=== PATIENT | female | born 2000 | race Caucasian/White ===

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

== ENCOUNTER 2020-07-31 19:32 | Emergency (ER) | payer OTHER ==
[2020-07-31 19:48] VITALS: BP 126/89; PULSE 100; RESP 20; TEMP 99.1
--- NOTE | 2020-07-31 20:11 | ED ---
Skin/Abscess/FB HPI - General Chief complaint: Skin/Abscess/Foreign Body Stated complaint: Rash Time Seen by Provider: 07/31/20 19:52 Source: patient Mode of arrival: ambulatory Limitations: no limitations - History of Present Illness Initial comments: 19-year-old female presents to emergency with chief complaint of a rash. She states her symptoms began approximately one week ago and it started in her forearms and has gradually moved to the trunk neck and her thighs. Patient reports the rash is very itchy but not painful. States the rash is somewhat worse at nighttime. She reports there is some itching in the webs of the fingers. She does report taking Benadryl with no significant improvement in the itching. Denies any night sweats or chills. States she lives with multiple members in the family in close quarters and no one else has the rash. - Related Data Previous Rx's Medication Instructions Recorded Permethrin 5% Cream [Elimite] 1 applic TOPICAL ONCE #1 cream..g. 07/31/20 Triamcinolone 0.1% Cream [Kenalog 1 applicatio TOPICAL BID #15 gram 07/31/20 0.1% Cream] hydrOXYzine HCL [Atarax] 25 mg PO TID PRN #15 tab 07/31/20 Allergies Allergy/AdvReac Type Severity Reaction Status Date / Time amoxicillin Allergy Unknown Verified 07/31/20 19:48 Review of Systems ROS Statement: Those systems with pertinent positive or pertinent negative responses have been documented in the HPI. ROS Other: All systems not noted in ROS Statement are negative. Past Medical History Past Medical History: No Reported History History of Any Multi-Drug Resistant Organisms: None Reported Past Surgical History: No Surgical Hx Reported Past Psychological History: No Psychological Hx Reported Smoking Status: Vaper Past Alcohol Use History: None Reported Past Drug Use History: Marijuana General Exam Limitations: no limitations General appearance: alert, in no apparent distress, obese Head exam: Present: atraumatic, normocephalic, normal inspection Eye exam: Present: normal appearance, PERRL, EOMI Pupils: Present: normal accommodation ENT exam: Present: normal exam, normal oropharynx, mucous membranes moist Neck exam: Present: normal inspection, full ROM. Absent: tenderness Respiratory exam: Present: normal lung sounds bilaterally. Absent: respiratory distress Cardiovascular Exam: Present: regular rate, normal rhythm, normal heart sounds Extremities exam: Present: normal inspection, full ROM, normal capillary refill Back exam: Present: normal inspection, full ROM Neurological exam: Present: alert, oriented X3, normal gait Psychiatric exam: Present: normal affect, normal mood Skin exam: Present: warm, dry, intact, normal color, rash (maculopapular rash on the bilateral upper extremities, trunk, neck and thighs. There is some lesions also noted in the webbing of her fingers.) Course Vital Signs 07/31/20 19:45 Temperature 99.1 F Pulse Rate 100 Respiratory 20 Rate Blood Pressure 126/89 O2 Sat by Pulse 99 Oximetry Medical Decision Making - Medical Decision Making 19-year-old female presents emergency Department with a chief complaint of a rash. Physical examination, this is a maculopapular rash throughout the whole body. Tears also lesions noted between the webs of the fingers. The rash appears to be worse at night. Patient will be started on permethrin and given specific instructions on how to use it. She was also given Atarax for itching and a steroid cream for the rash that appears to be worse in certain areas. Return parameters were thoroughly discussed the patient was understanding and agreeable. She has no point with the primary care Sunday. Case discussed with Dr. Black Disposition Clinical Impression: Scabies Disposition: HOME SELF-CARE Condition: Stable Instructions (If sedation given, give patient instructions): Scabies (ED) Prescriptions: hydrOXYzine HCL [Atarax] 25 mg PO TID PRN #15 tab PRN Reason: Itching Permethrin 5% Cream [Elimite] 1 applic TOPICAL ONCE #1 cream..g. Triamcinolone 0.1% Cream [Kenalog 0.1% Cream] 1 applicatio TOPICAL BID #15 gram Is patient prescribed a controlled substance at d/c from ED?: No Referrals: Solomon Merida MD [Primary Care Provider] - 1-2 days Time of Disposition: 20:46
== END 2020-07-31 20:59 | disposition home or self-care (01) ==
LOC: EC 19:32
DX: B86 Scabies (principal); F17.290 Nicotine dependence, other tobacco product, uncomplicated; Z88.0 Allergy status to penicillin
CPT/HCPCS: 99282

== ENCOUNTER → 2022-05-11 | Outpatient (CLI) | payer OTHER | END | disposition home or self-care (01) | LOC: LABWHC1 16:10 | PROVIDERS: ATTEND Obstetrics & Gynecology | DX: O02.1 Missed abortion (principal); Z3A.00 Weeks of gestation of pregnancy not specified | CPT/HCPCS: 36415; 84702 ==

== ENCOUNTER → 2022-05-11 | Outpatient (CLI) | payer OTHER ==
--- NOTE | 2022-05-12 07:58 | US ---
EXAMINATION TYPE: Transabdominal DATE OF EXAM: 05/11/2022 4:07 PM COMPARISON: NONE CLINICAL HISTORY: Z36.89 confirm gestational age/viability. confirm dates EXAM PERFORMED: Transvaginal (TV) and Transabdominal (TA) EXAM MEASUREMENTS: GESTATIONAL AGE / DATING Physician Established: Not yet established Dates by LMP: (11 weeks/3 days) EDC: 11/27/22 Dates by First Scan: No previous this is first scan Dates by Current Scan for: (9 weeks/2 days) EDC: 12/12/22 MATERNAL ANATOMY Uterus: 8.7 x 6.2 x 7.4cm Right Ovary: 3.7 x 3.4 x 2.5cm Left Ovary: 2.9 x 2.1 x 1.6cm Post CDS / Adnexa: wnl Presence of free fluid: no Presence of corpus luteal cyst: yes, complex area right ovary = 2.1 x 2.2 x 1.9cm GESTATION / SURVEY CRL: 2.5cm (9 weeks/2 days) Yolk Sac (normal less than 6mm): not seen Heart Rate: unable to obtain heart tones at this time IUP: Demise Date of LMP: 02/20/22 Beta HcG (if available): Not available at this time IMPRESSION: Findings consistent with demise.
== END | disposition home or self-care (01) ==
LOC: RADUSWWP 15:32
PROVIDERS: ATTEND Obstetrics & Gynecology
DX: Z36.89 Encounter for other specified antenatal screening (principal); Z3A.09 9 weeks gestation of pregnancy
CPT/HCPCS: 76801; 76817

== ENCOUNTER → 2022-05-16 | Outpatient (CLI) | payer OTHER ==
--- NOTE | 2022-05-16 16:20 | US ---
EXAMINATION TYPE: US pelvic complete DATE OF EXAM: 05/16/2022 COMPARISON: NONE CLINICAL HISTORY: 21-year-old female O03.4 INCOMPLETE SPONTANEOUS . Miscarriage retained prod ucts. TECHNIQUE: Transabdominal sonographic images of the pelvis were acquired. FINDINGS: EXAM MEASUREMENTS: Uterus: 12.6 x 4.9 x 6.1 cm Endometrial Stripe: 1.2 cm Right Ovary: 3.2 x 1.8 x 2.7 cm Left Ovary: 3.3 x 1.9 x 2.9 cm 1. Uterus: Roll Finisher notes: Anteverted and otherwise wnl; no retained products seen. 2. Endometrium: wnl 3. Right Ovary: wnl 4. Left Ovary: wnl 5. Bilateral Adnexa: wnl 6. Posterior cul-de-sac: wnl IMPRESSION: The endometrial stripe appears uniformly thickened and homogeneous measuring 1.2 cm. This should altagracia espond to the secretory phase of the menstrual cycle.
== END | disposition home or self-care (01) ==
LOC: RADUSWWP 10:20
PROVIDERS: ATTEND Obstetrics & Gynecology
DX: O03.4 Incomplete spontaneous abortion without complication (principal)
CPT/HCPCS: 76856

== ENCOUNTER 2022-07-13 16:55 | Emergency (ER) | payer OTHER ==
[2022-07-13] MEDS ORDERED: LIDOCAINE 1% INJ 10MG/ML (30 ML VIAL-PF) SQ ONE (17:39)
--- NOTE | 2022-07-13 19:10 | ED ---
General Adult HPI - General Chief complaint: Skin/Abscess/Foreign Body Stated complaint: groin pain - sent by urgent care Time Seen by Provider: 07/13/22 17:21 Source: patient, family, RN notes reviewed Mode of arrival: ambulatory Limitations: no limitations - History of Present Illness Initial comments: 21-year-old female with no significant past medical history presents to the emergency department with a chief complaint of gluteal abscess. She noticed the abscess started about a week ago. She denies any self incision and drainage. She was evaluated by [facility] who recommend she be evaluated in the ED. She denies fevers, headache, chest pain, palpitations, shortness of breath, abdominal pain, nausea, vomiting, diarrhea, pain with defecation. - Related Data Previous Rx's Medication Instructions Recorded Ketorolac [Toradol] 10 mg PO Q8HR #15 tab 07/13/22 Sulfamethox-Tmp 800-160Mg [Bactrim 1 each PO Q12HR #20 tab 07/13/22 Ds] Allergies Allergy/AdvReac Type Severity Reaction Status Date / Time amoxicillin Allergy Unknown Verified 07/13/22 18:11 Childhood Penicillins Allergy Unknown Verified 07/13/22 18:11 Childhood Review of Systems ROS Statement: Those systems with pertinent positive or pertinent negative responses have been documented in the HPI. ROS Other: All systems not noted in ROS Statement are negative. Past Medical History Past Medical History: No Reported History History of Any Multi-Drug Resistant Organisms: None Reported Past Surgical History: No Surgical Hx Reported Past Psychological History: No Psychological Hx Reported Smoking Status: Vaper Past Alcohol Use History: None Reported Past Drug Use History: Marijuana General Exam Limitations: no limitations General appearance: alert, in no apparent distress Head exam: Present: atraumatic, normocephalic, normal inspection Eye exam: Present: normal appearance, PERRL, EOMI. Absent: scleral icterus, conjunctival injection, periorbital swelling ENT exam: Present: normal exam, mucous membranes moist Neck exam: Present: normal inspection. Absent: tenderness, meningismus, lymphadenopathy Respiratory exam: Present: normal lung sounds bilaterally. Absent: respiratory distress, wheezes, rales, rhonchi, stridor Cardiovascular Exam: Present: regular rate, normal rhythm, normal heart sounds. Absent: systolic murmur, diastolic murmur, rubs, gallop, clicks GI/Abdominal exam: Present: soft, normal bowel sounds. Absent: distended, tenderness, guarding, rebound, rigid Extremities exam: Present: normal inspection, full ROM, normal capillary refill. Absent: tenderness, pedal edema, joint swelling, calf tenderness Back exam: Present: normal inspection Neurological exam: Present: alert, oriented X3, CN II-XII intact Psychiatric exam: Present: normal affect, normal mood Skin exam: Present: warm, dry, intact, normal color, other (Lesion with fluctuance, erythema and edema to R gluteal fold, no active drainage, no crepitis ). Absent: rash Course Vital Signs 07/13/22 07/13/22 17:14 19:00 Temperature 98 F 98.6 F Pulse Rate 110 H 98 Respiratory 20 16 Rate Blood Pressure 104/67 113/78 O2 Sat by Pulse 99 99 Oximetry - Reevaluation(s) Reevaluation #1: 07/13/22 18:58 incision and drainage procedure performed on patient. Patient tolerated well. CRISTI gimenez at bedside during procedure. Procedures - Incision & Drainage Consent Obtained: verbal consent Site: buttock (right) Anesthetic Used: lidocaine 1% I&D Cleaning Method: Betadine Scalpel Used: #11 Needle Aspiration Performed?: Yes Irrigation Performed?: Yes I&D Drainage Obtained: Pus, Blood Packing: Iodoform Culture Obtained?: No Complications: pain, bleeding, nerve injury, allergic reaction Patient Tolerated Procedure: well, no complications Medical Decision Making - Medical Decision Making Was pt. sent in by a medical professional or institution (ELLIS Arias, UNIV[employer]ARIAN, urgent care, hospital, or intermediate...) When possible be specific @ -Urgent Care Did you speak to anyone other than the patient for history (EMS, parent, family, police, friend...)? What history was obtained from this source @ -[No] Did you review nursing and triage notes (agree or disagree)? Why? @ -[I reviewed and agree with nursing and triage notes] Were old charts reviewed (outside hosp., previous admission, EMS record, old EKG, old radiological studies, urgent care reports/EKG's, intermediate records)? Report findings @ -[No old charts were reviewed] Differential Diagnosis (chest pain, altered mental status, abdominal pain women, abdominal pain men, vaginal bleeding, weakness, fever, dyspnea, syncope, headache, dizziness, GI bleed, back pain, seizure, CVA, palpatations, mental health)? @ -[not applicable] EKG interpreted by me (3pts min.). @ -[As above] X-rays interpreted by me (1pt min.). @ -[None done] CT interpreted by me (1pt min.). @ -[None done] U/S interpreted by me (1pt. min.). @ -[None done] What testing was considered but not performed or refused? (CT, X-rays, U/S, labs)? Why? @ -[None] What meds were considered but not given or refused? Why? @ -[None] Did you discuss the management of the patient with other professionals ( professionals i.e. , PA, UNIVERSITY LIBRARIAN, lab, RT, psych nurse, social services designee, business applications specialist, teacher, staff weapons officer, optical manager)? Give summary @ -[No] Was smoking cessation discussed for >3mins.? @ -[No] Was critical care preformed (if so, how long)? @ -[No] Were there social determinants of health that impacted care today? How? (Homelessness, low income, unemployed, alcoholism, drug addiction, transportation, low edu. Level, literacy, decrease access to med. care, correction, rehab)? @ -[No] Was there de-escalation of care discussed even if they declined (Discuss DNR or withdrawal of care, Hospice)? DNR status @ -[No] What co-morbidities impacted this encounter? (DM, HTN, Smoking, COPD, CAD, Cancer, CVA, ARF, Chemo, Hep., AIDS, mental health diagnosis, sleep apnea, morbid obesity)? @ -[None] Was patient admitted / discharged? Hospital course, mention meds given and route, prescriptions, significant lab abnormalities, going to OR and other pertinent info. @ -21 year old female presents to the emergency department with a chief complaint of abscess. Physical exam reveals a tender, erythematous area of induration on the right guteal fold. Patient had an I&D procedure performed with packing placed. She was given Tylenol with symptomatic relief. She was given a prescription for Bactrim. I discussed the natural history of abscess with the patient. All questions were addressed and return precautions were discussed. Patient was discharged in stable condition with recommend follow up with primary care physician in 1-2 days. Case discussed with Dr. Trimble who agrees with the plan of care. Undiagnosed new problem with uncertain prognosis? @ -[No] Drug Therapy requiring intensive monitoring for toxicity (Heparin, Nitro, Insulin, Cardizem)? @ -[No] Were any procedures done? @ -Incision and drainage Diagnosis/symptom? @ -abscess to right gluteal muscle a Acute, or Chronic, or Acute on Chronic? @ acute ] Uncomplicated (without systemic symptoms) or Complicated (systemic symptoms)? @ -uncomplicated Side effects of treatment? @ -take Bactrim with food as it can cause abdominal pain, nausea, vomiting Exacerbation, Progression, or Severe Exacerbation? @ -[No] Poses a threat to life or bodily function? How? (Chest pain, [place], [place], pneumonia, PE, COPD, DKA, ARF, appy, cholecystitis, CVA, Diverticulitis, Homicidal, Suicidal, threat to staff... and all critical care pts) @ -[No] Disposition Clinical Impression: Abscess, gluteal, right Disposition: HOME SELF-CARE Condition: Stable Instructions (If sedation given, give patient instructions): Abscess (ED) Prescriptions: Sulfamethox-Tmp 800-160Mg [Bactrim Ds] 1 each PO Q12HR #20 tab Ketorolac [Toradol] 10 mg PO Q8HR #15 tab Is patient prescribed a controlled substance at d/c from ED?: No Referrals: None,Stated [Primary Care Provider] - 1-2 days Time of Disposition: 19:09
[2022-07-13] MEDS ORDERED: ACETAMINOPHEN TAB 325 MG TAB PO STA (19:14)
[2022-07-13] MEDS ORDERED: SULFAMETH-TMP DS STARTER PACK 2 TAB BTL PO STA (19:15)
[2022-07-13 19:21] VITALS: BP 113/78; PULSE 98; RESP 16; TEMP 98.6
== END 2022-07-13 19:31 | disposition home or self-care (01) ==
LOC: EC 16:55
DX: L02.31 Cutaneous abscess of buttock (principal); F17.290 Nicotine dependence, other tobacco product, uncomplicated; F12.90 Cannabis use, unspecified, uncomplicated; Z88.0 Allergy status to penicillin
CPT/HCPCS: 99283; 10060; J2001